=== PATIENT | male | born 1995 | race Caucasian/White ===

== ENCOUNTER 2023-09-29 00:03 | Emergency (ER) | payer OTHER ==
[~2023-09-29] VITALS: Ht 167.6 cm; Wt 73.0 kg
[2023-09-29 00:30] VITALS: O2SAT 99
[2023-09-29 00:54] LABS: BASOPHILS % 0.3 % (0.0-2.0); EOSINOPHILS % 1.8 % (0.0-5.0); HEMATOCRIT. 44.3 % (42.0-52.0); HEMOGLOBIN. 14.8 g/dL (14.0-18.0); LYMPHOCYTES % 9.7 % (20.0-50.0); MEAN CORPUSCULAR HEMOGLOBIN 30.8 pg (28.0-32.0); MEAN CORPUSCULAR HGB CONC 33.3 g/dL (31.0-37.0); MEAN CORPUSCULAR VOLUME 92.4 fL (80.0-94.0); MEAN PLATELET VOLUME 8.2 fl (7.4-10.4); MONOCYTES % 6.2 % (2.0-8.0); PLATELET 299 x1000/uL (130-400); RED CELL DISTRIBUTION WIDTH 13.5 % (11.6-14.6); WHITE BLOOD COUNT 16.2 x1000/uL (4.5-11.0)
[2023-09-29 01:20] LABS: ALANINE AMINOTRANSFERASE 33 IU/L (10-49); ALBUMIN 4.8 g/dL (3.2-4.8); ASPARTATE AMINOTRANSFERASE 27 IU/L (<34); BILIRUBIN TOTAL 0.5 mg/dL (0.1-1.0); CALCIUM 9.2 mg/dL (8.7-10.4); CARBON DIOXIDE 29 mEq/L (21-32); CHLORIDE 104 mEq/L (98-107); CREATININE 0.6 mg/dL (0.6-1.3); GLUCOSE 102 mg/dL (70-105); POTASSIUM 3.6 mEq/L (3.5-5.1); PROTEIN TOTAL 6.9 g/dL (6.0-8.3); SODIUM 142 mEq/L (136-145); UREA NITROGEN BLOOD 11 mg/dL (9-23)
[2023-09-29 01:58] LABS: ETHANOL BLOOD < 10 mg/dL (<10)
[2023-09-29 05:47] LABS: CLARITY URINE CLEAR (CLEAR); COLOR URINE YELLOW (YELLOW); GLUCOSE URINE NEGATIVE (NEGATIVE); KETONES URINE NEGATIVE (NEGATIVE); PROTEIN URINE NEGATIVE (NEGATIVE); SPECIFIC GRAVITY URINE 1.033 (1.005-1.030)
[2023-09-29 05:48] LABS: NITRITE URINE NEGATIVE (NEGATIVE); OCCULT BLOOD URINE NEGATIVE (NEGATIVE)
[2023-09-29 05:49] LABS: LEUKOCYTE ESTERASE URINE NEGATIVE (NEGATIVE)
[2023-09-29] MEDS ORDERED: SODIUM CHLORIDE 0.9% 1,000 ML IV ONE (06:00)
[2023-09-29] MEDS ORDERED: TRAM50TA3 MT (09:16)
[2023-09-29] MEDS ORDERED: ONDA4TAB11 PO (09:16)
[2023-09-29] MEDS ORDERED: IOHEXOL-350 100 ML BOTTLE ONE (09:35)
[2023-09-29 09:57] VITALS: BP 132/60; PULSE 86; RESP 18; TEMP 98.3
== END 2023-09-29 10:03 | disposition home or self-care (01) ==
LOC: ER 00:03
DX: R10.9 Unspecified abdominal pain (principal)
CPT/HCPCS: 80053; 81003; 80320; 83690; 85025; 36415; 74177; 96360; 96361; 99284; Q9967; J7030; G0480

== ENCOUNTER 2024-05-03 03:24 | Emergency (ER) | payer MEDICAID, OTHER ==
[~2024-05-03] VITALS: Ht 175.3 cm; Wt 77.0 kg
[~2024-05-03 03:24] MED LIST: ONDA4TAB11 PO; TRAM50TA3 MT
[2024-05-03 03:57] VITALS: BP 146/94; PULSE 116; RESP 14; TEMP 97.7; O2SAT 99
== END 2024-05-03 05:45 | disposition left against medical advice (07) ==
LOC: ER 03:31
DX: F41.9 Anxiety disorder, unspecified (principal); Z53.21 Procedure and treatment not carried out due to patient leaving prior to being seen by health care provider
CPT/HCPCS: 93005

== ENCOUNTER 2024-11-22 22:55 | Emergency (ER) | payer MEDICAID ==
[~2024-11-22] VITALS: Ht 167.6 cm; Wt 69.0 kg
[~2024-11-22 22:55] MED LIST changes: +ONDA-239 PO; -ONDA4TAB11 PO
[2024-11-22 23:14] VITALS: O2SAT 99
[2024-11-22 23:18] VITALS: BP 125/85; PULSE 69; RESP 13; TEMP 37.1; O2SAT 99
[2024-11-23] MEDS ORDERED: FAMO-135 MT (03:04)
== END 2024-11-23 03:40 | disposition home or self-care (01) ==
LOC: ER 22:55
DX: L50.9 Urticaria, unspecified (principal)
CPT/HCPCS: 99283